=== PATIENT | female | born 2005 | race African-American/Black ===

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

== ENCOUNTER 2025-06-13 07:04 | Emergency (ER) | payer OTHER ==
[~2025-06-13] VITALS: Ht 162.5 cm; Wt 44.4 kg
[~2025-06-13 07:04] MED LIST changes: +FERROUS SULFAT325 MG PO
[2025-06-13] MEDS ORDERED: Ondansetron Hydrochloride 4 MG/2 ML VIAL IV ONE (07:55)
[2025-06-13] MEDS ORDERED: ACETAMINOPHEN 325 MG TAB PO ONE (08:00)
[2025-06-13] MEDS ORDERED: Lactated Ringer's Solution 1,000 ML IV SCH (08:00)
[2025-06-13 08:03] LABS: BILIRUBIN Negative (Negative); BLOOD 2+ (Negative); CLARITY Turbid (Clear); COLOR Yellow (Yellow); KETONE Negative (Negative); LEUKO ESTERASE 3+ (Negative); NITRITE Negative (Negative); PH 6.0 (4.5-8.0); SPECIFIC GRAVITY 1.020 (1.001-1.030); UROBILINOGEN 1.0 E.U./dl (0.0-1.0)
[2025-06-13 08:09] LABS: BASO # 0.0 10*3/uL (0.0-0.1); BASO % 0.3 % (0.0-1.0); EOS # 0.1 10*3/uL (0.0-0.4); EOS % 0.8 % (1.0-4.0); MEAN CELL VOLUME 80.4 fl (81.0-99.0); MEAN CORPUSCULAR HGB 24.3 pg (27.0-31.0); MEAN PLATELET VOLUME 11.3 fl (9.6-12.3); MONO # 0.8 10*3/uL (0.1-1.0); MONO % 6.9 % (3.0-9.0); NEUT # 8.4 10*3/uL (2.3-7.9); NEUT % 69.8 % (47.0-73.0); NUCLEATED RED BLOOD CELL 0.0 % (0.0-0.0); NUCLEATED RED BLOOD CELL 0.0 10*3/uL (0.0-0.0); PLATELET COUNT AUTOMATED 200 10*3/uL (130-400); RED CELL DISTRI WIDTH 14.9 % (0-14.5)
[2025-06-13 08:17] LABS: RBC TNTC rbc/hpf (0-2); WBC TNTC wbc/hpf (0-5)
[2025-06-13 08:32] LABS: BUN 12 mg/dl (9-23); SGPT/ALT 26 U/L (5-49)
[2025-06-13] MEDS ORDERED: IOHEXOL 300 MG/ML 100 ML VIAL ONE (08:38)
[2025-06-13] MEDS ORDERED: LEVOFLOXACIN500 MG PO (09:39)
== END 2025-06-13 13:28 | disposition home or self-care (01) ==
LOC: ED 07:04
PROVIDERS: Emergency Medicine
DX: N39.0 Urinary tract infection, site not specified (principal); R11.2 Nausea with vomiting, unspecified